=== PATIENT | male | born 2005 | race Caucasian/White ===

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

== ENCOUNTER 2023-06-15 18:29 | Emergency (ER) | payer MEDICAID ==
[~2023-06-15] VITALS: Ht 170.2 cm; Wt 74.9 kg
[~2023-06-15 18:29] MED LIST changes: +AMOXICILLIN500 MG PO; +NAPROSYN500 MG PO; +VYVANSE40 MG PO
[2023-06-15 19:50] LABS: BASOPHILS 0.6 % (0-2); EOSINOPHILS 2.2 % (0-6); HEMATOCRIT 41.4 % (35.0-50.0); HEMOGLOBIN 14.1 g/dL (12.0-18.0); LYMPHOCYTES 33.9 % (24-44); MCH 28.5 (27-36); NEUTROPHILS 51.3 % (39-80); PLATELET COUNT 307 K/uL (140-440); RBC 4.93 M/ul (4.3-5.7)
[2023-06-15 19:50] LABS: BILIRUBIN, URINE NEGATIVE (negative); BLOOD/HGB, URINE NEGATIVE (Negative); KETONE, URINE NEGATIVE (Negative); LEUK ESTERASE, URINE NEGATIVE (negative); NITRITE, URINE NEGATIVE (negative)
[2023-06-15 20:06] LABS: AMPHETAMINES, URINE NEGATIVE (NEGATIVE); BARBITURATES, URINE NEGATIVE (NEGATIVE); BENZODIAZEPINE, URINE POSITIVE (NEGATIVE); BUPRENORPHINE, URINE NEGATIVE (NEGATIVE); CANNABINOID, URINE POSITIVE (NEGATIVE); COCAINE, URINE POSITIVE (NEGATIVE); ECSTASY, URINE NEGATIVE (NEGATIVE); FENTANYL, URINE NEGATIVE (NEGATIVE); METHADONE, URINE NEGATIVE (NEGATIVE); OPIATES, URINE NEGATIVE (NEGATIVE); OXYCODONE, URINE NEGATIVE (NEGATIVE); PHENCYCLIDINE, URINE NEGATIVE (NEGATIVE)
[2023-06-15 20:16] LABS: ACETAMINOPHEN 0 ug/mL (10-30); ALBUMIN 3.8 g/dL (3.4-5.0); ALCOHOL, MEDICAL <3 ng/dL (<3); ALKALINE PHOSPHATASE 88 U/L (46-116); ALT (SGPT) 27 U/L (14-59); ANION GAP 12.7 (7-21); AST (SGOT) 21 U/L (15-37); BILIRUBIN, TOTAL 0.7 ng/dL (0.2-1.0); BUN/CREATININE RATIO 18.27 (6.0-28.6); CALCIUM 8.9 mg/dL (8.5-10.1); CARBON DIOXIDE 31 mmol/L (21-32); CHLORIDE 101 mmol/L (98-107); CREATININE, SERUM 0.93 mg/dL (0.70-1.30); GLOMERULAR FILTRATION RATE,EST 121 mL/min (>60); POTASSIUM 3.7 mmol/L (3.5-5.1); SALICYLATE 1.3 mg/dL (2.8-20.0); TSH, 3RD GENERATION 0.292 uIU/mL (0.516-4.130); UREA NITROGEN 17 mg/dL (7-18)
[2023-06-16 10:45] VITALS: BP 107/57
== END 2023-06-16 10:47 | disposition home or self-care (01) ==
LOC: ED 18:29
PROVIDERS: Family Medicine
DX: R45.850 Homicidal ideations (principal); F19.10 Other psychoactive substance abuse, uncomplicated; F90.9 Attention-deficit hyperactivity disorder, unspecified type; F17.200 Nicotine dependence, unspecified, uncomplicated; Z79.899 Other long term (current) drug therapy
CPT/HCPCS: 36415; 80053; 80307; 81003; 84443; 85025; G0480

== ENCOUNTER 2023-10-05 11:30 | Emergency (ER) | payer MEDICAID ==
[~2023-10-05] VITALS: Ht 170.2 cm; Wt 78.8 kg
[~2023-10-05 11:30] MED LIST changes: +DOXYCYCLINE HY100 MG PO; +PYRIDIUM200 MG PO; +TOPICAINE 5113 GM TOP
[2023-10-05 16:14] LABS: BILIRUBIN, URINE NEGATIVE (negative); BLOOD/HGB, URINE NEGATIVE (Negative); KETONE, URINE NEGATIVE (Negative); LEUK ESTERASE, URINE NEGATIVE (negative); NITRITE, URINE NEGATIVE (negative)
[2023-10-05 16:17] LABS: BASOPHILS 0.7 % (0-2); EOSINOPHILS 1.7 % (0-6); HEMATOCRIT 43.8 % (35.0-50.0); HEMOGLOBIN 15.2 g/dL (12.0-18.0); LYMPHOCYTES 32.5 % (24-44); MCH 29.1 (27-36); MCHC 34.7 g/dl (30-36); MCV 83.7 fl (81-99); MONOCYTES 8.7 % (0-12); NEUTROPHILS 56.4 % (39-80); PLATELET COUNT 292 K/uL (140-440); RBC 5.24 M/ul (4.3-5.7); RDW 13.2 (10.5-15.0)
[2023-10-05 16:30] LABS: ALBUMIN 4.4 g/dL (3.4-5.0); ALBUMIN/GLOBULIN RATIO 1.22 (1.1-2.4); ANION GAP 13.2 (7-21); BILIRUBIN, TOTAL 0.7 ng/dL (0.2-1.0); BUN/CREATININE RATIO 15.62 (6.0-28.6); CALCIUM 9.1 mg/dL (8.5-10.1); CREATININE, SERUM 0.96 mg/dL (0.70-1.30); POTASSIUM 4.2 mmol/L (3.5-5.1)
[2023-10-05 17:46] VITALS: BP 136/79
== END 2023-10-05 17:44 | disposition left against medical advice (07) ==
LOC: ED 11:30
PROVIDERS: Emergency Medicine
DX: R10.9 Unspecified abdominal pain (principal); M79.606 Pain in leg, unspecified; Z53.21 Procedure and treatment not carried out due to patient leaving prior to being seen by health care provider
CPT/HCPCS: 36415; 80053; 81003; 83690; 85025; 99406

== ENCOUNTER 2024-11-25 22:28 | Emergency (ER) | payer OTHER ==
[~2024-11-25] VITALS: Ht 175.3 cm; Wt 83.3 kg
[2024-11-25 22:59] LABS: MCH 29.1 PG (25.7-32.2); MCHC 34.3 g/dL (32.3-36.5); MCV 85.0 fL (79.0-92.2); RBC 5.01 M/uL (4.63-6.08)
[2024-11-25] MEDS ORDERED: fentaNYL citrate 100 MCG/2 ML VIAL IV ONE (23:00)
[2024-11-25] MEDS ORDERED: LACTATED RINGER'S 1,000 ML IV ONE (23:00)
[2024-11-25] MEDS ORDERED: DIPHTH,PERTUSS(ACELL),TET VAC 0.5 ML SYRINGE IM ONE (23:15)
[2024-11-25 23:17] LABS: ALCOHOL, MEDICAL 8.0 ng/dL (<3); ALT (SGPT) 35.0 U/L (14-59); AST (SGOT) 22.0 U/L (15-37); GLOMERULAR FILTRATION RATE,EST 87.0 mL/min (>60); PROTEIN, TOTAL 7.8 g/dL (6.4-8.2); UREA NITROGEN 19.0 mg/dL (7-18)
[2024-11-25 23:22] LABS: EOSINOPHILS, MANUAL DIFF 6; LYMPHOCYTES, MANUAL DIFF 59; MONOCYTES, MANUAL DIFF 3; NEUTROPHILS, MANUAL DIFF 32
[2024-11-25 23:30] LABS: ABO A
[2024-11-25 23:31] LABS: ANTIBODY SCREEN NEGATIVE; RH POSITIVE
[2024-11-26 01:58] VITALS: BP 132/70
== END 2024-11-26 02:00 | disposition home or self-care (01) ==
LOC: ED 22:28
PROVIDERS: Internal Medicine
DX: S16.1XXA Strain of muscle, fascia and tendon at neck level, initial encounter (principal); S40.212A Abrasion of left shoulder, initial encounter; F17.200 Nicotine dependence, unspecified, uncomplicated; V87.8XXA Person injured in other specified noncollision transport accidents involving motor vehicle (traffic), initial encounter
CPT/HCPCS: 36415; 70450; 71250; 72125; 80053; 80307; 82550; 85025; 86850; 86900; 86901; 90471; 90715; 96374; 96375; 99284-25; G0480; J2405; J3010; J7121

== ENCOUNTER 2025-02-02 11:22 | Emergency (ER) | payer OTHER ==
[~2025-02-02] VITALS: Ht 175.3 cm; Wt 90.0 kg
[2025-02-02] MEDS ORDERED: ONDANSETRON ODT8 MG PO (11:51)
[2025-02-02 12:26] VITALS: BP 137/81
== END 2025-02-02 12:26 | disposition home or self-care (01) ==
LOC: ED 11:22
DX: A08.4 Viral intestinal infection, unspecified (principal); F17.200 Nicotine dependence, unspecified, uncomplicated; I10 Essential (primary) hypertension
CPT/HCPCS: 96374; 99283-25; J2405